=== PATIENT | male | born 1980 | race Caucasian/White ===

== ENCOUNTER 2023-09-04 19:09 | Emergency (ER) | payer OTHER, SELFPAY ==
[2023-09-04 19:22] VITALS: BP 120/84
--- NOTE | 2023-09-04 22:51 | ED.MUSCINJ ---
HPI-Injury
General
Chief Complaint: Musculo-Skeletal Complaint
Source: patient
Exam Limitations: none
Time Seen by Provider: 09/04/23 20:38
Nursing documentation reviewed up to this point in time: agreed with
Travel History
Have you had any contact with someone who has COVID-19?: No
Do you have any symptoms of coronavirus? Fever > 100 degrees, chills, cough, shortness of breath, sore throat, loss of taste or smell, muscle aches, or headache?: No
History of Present Illness-Injury
Is this injury a work related problem?: No
Is pt an associate of [facility]?: No
Initial Injury comments:
Patient to ED with complaint of right posterior elbow pain. States he tripped and fell forward. He believes he fell forward onto bent arm. Complains of pain and deformity to posterior right elbow.
Past History
Past History
ED Past Medical History: None
ED Past Surgical History: None
Review of Systems
Review of Systems
Allergies reviewed?: Yes
All Other Systems: ROS reviewed and negative except as documented in HPI and ROS
Constitutional: Reports no symptoms
Musculoskeletal: Reports joint pain (pain and deformity to right posterior elbow.)
Skin: Reports no symptoms
Neurological: Reports no symptoms
Psychiatric: Reports no symptoms
Musculoskeletal Injury Exam
Musculoskeletal Injury Exam
Right Posterior Elbow:
Pain with Movement?: Mild
Tender to palpation?: Moderate
Soft tissue swelling?: Moderate
Joint effusion?: None
Contusion?: None
Hematoma-local bleeding into tissue?: Mild
Strain- Sprain- Tear (Connective tissue injury)?: Moderate
Crepitus with movement?: No
Joint instability?: No
Malalignment/deformity?: No
Range of motion: Limited
Distal skin color and temperature: normal-warm & good color
Capillary Refill: normal
Normal distal neurovascular exam?: Yes
Peripheral Pulses: radial (right): 3+
Phy Exam
General Physical Exam
General Presentation: well appearing and no apparent distress
General age: appears stated age
General Skin: warm and dry
General Habitus: normal
General Mental: alert
General Hydration: appears well hydrated
Musculoskeletal Exam
Musculoskeletal Exam: neuro vasc intact and other (Defect felt of tricep tendon insert at olecranon)
Skin Exam
Skin Exam: normal color, warm/dry and no rash
Psychiatric Exam
Psychiatric Exam: normal mood/affect
Injury Course
Orders/Labs/Results
Orders:
Orders
09/04/23 19:27
Humerus, Right 2 Views [CR Humerus - Right Min 2 View*] Urgent
Comment:
Reason For Exam: FALL
*Radiology
Radiology exam reviewed: radiology read reviewed
*Pulse Oximetry
Patient hypoxic: no
*Critical Care Note
Total Time (30-74mins, 75-104mins- exclusive of procedures): Not Applicable
ED Attending Note
-
Portions of this chart may have been created with voice recognition software.� Occasional wrong word or��sound alike� substitutions may have occurred due to the inherent limitations of voice recognition software.
Discharge Plan
Departure
Patient Disposition: Home (Routine Discharge)
Date of Disposition: 09/04/23
Time of Disposition: 21:06
Patient with high blood pressure during this ER visit?: No
Condition: Good
Discharge Problem:
Injury of tendon of triceps
Instructions: Ibuprofen, Tendon Repair (DC), Using Cold for Pain
Referrals:
Gita Washington PA-C [Family Provider] -
Murtaza Reese MD [Active] - Call in 1-3 days for appt
Interventions
Interventions:
*Risk Screen - Suicide Last Done: 09/04/23 19:22
*General Assessment Last Done: 09/04/23 21:28
*Neglect/Abuse Screening Last Done: 09/04/23 19:22
ED- Fall Risk Assessment Last Done: 09/04/23 21:28
*ED COVID-19 Vaccine History Last Done: 09/04/23 21:28
*Nursing Disposition Last Done: 09/04/23 21:28
ED-Musculoskeletal Assessment Last Done: 09/04/23 21:26
Discharge Date and Time
Discharge Date/Time: 09/04/23 21:29
Print Language: CITIZEN [place]
== END 2023-09-04 21:29 | disposition home or self-care (01) ==
LOC: EMR 19:09
PROVIDERS: EMERGENCY PHYSICIAN Emergency Medicine; FAMILY PHYSICIAN Physician Assistant Medical
DX: S46.301A Unspecified injury of muscle, fascia and tendon of triceps, right arm, initial encounter (principal); W01.0XXA Fall on same level from slipping, tripping and stumbling without subsequent striking against object, initial encounter
CPT/HCPCS: 99283; 73060